=== PATIENT | female | born 1965 | race African-American/Black ===

== ENCOUNTER → 2016-07-07 | Outpatient (CLI) | payer OTHER ==
[~2016-07-07] MED LIST: BACTRIM,SEPT1 TABLET PO; LISINOPRIL; LISINOPRIL10 MG PO; VICODIN 5-3001 EACH PO
== END | disposition home or self-care (01) ==
LOC: RES 09:00
DX: R05 Cough (principal)
CPT/HCPCS: 94070; 94726; 94729

== ENCOUNTER 2017-01-26 05:14 | Day surgery (SDC) | payer OTHER ==
[~2017-01-26] VITALS: Ht 162.6 cm; Wt 104.3 kg
[~2017-01-26 05:14] MED LIST changes: +CLARITIN,ALAVAR10 MG PO; +FEOSOL325 MG PO; +QVAR 40 MCG IN7.3 GM IH; +VENTOLIN HFA18 GM IH
[2017-01-26 06:53] VITALS: BP 185/85
[2017-01-26] MEDS ORDERED: COLACE100 MG PO (09:03)
[2017-01-26] MEDS ORDERED: PERCOCET 5/31 TABLET PO (09:03)
[2017-01-26 09:56] VITALS: BP 158/85
[2017-01-26 10:40] VITALS: BP 170/86
[2017-01-26 14:26] LABS: INTERNAL CONTROL VALID? YES
== END 2017-01-26 10:59 | disposition home or self-care (01) ==
LOC: SDC
PROVIDERS: Surgery
PROC: 0JB90ZZ Excision of Buttock Subcutaneous Tissue and Fascia, Open Approach (ICD-10-PCS; principal; 2017-01-26)
DX: L05.91 Pilonidal cyst without abscess (principal); D50.9 Iron deficiency anemia, unspecified; F17.200 Nicotine dependence, unspecified, uncomplicated; I10 Essential (primary) hypertension; J45.909 Unspecified asthma, uncomplicated; E04.1 Nontoxic single thyroid nodule
CPT/HCPCS: 84703; 88304; 93005; J0330; J1885; J2250; J2405; J3010

== ENCOUNTER 2017-07-10 06:08 | Day surgery (SDC) | payer OTHER ==
[~2017-07-10] VITALS: Ht 160 cm; Wt 106.6 kg
[~2017-07-10 06:08] MED LIST changes: +COLACE100 MG PO; -LISINOPRIL10 MG PO; +MOBIC7.5 MG PO; +PERCOCET 5/31 TABLET PO; +ZESTRIL20 MG PO
[2017-07-10 07:15] VITALS: BP 203/104
[2017-07-10 08:06] VITALS: BP 192/100
[2017-07-10 13:48] VITALS: BP 162/72
[2017-07-10 14:50] VITALS: BP 144/81
== END 2017-07-10 15:20 | disposition home or self-care (01) ==
LOC: SDC
DX: D25.9 Leiomyoma of uterus, unspecified (principal); N83.8 Other noninflammatory disorders of ovary, fallopian tube and broad ligament; N87.9 Dysplasia of cervix uteri, unspecified; N92.0 Excessive and frequent menstruation with regular cycle; I10 Essential (primary) hypertension; J45.909 Unspecified asthma, uncomplicated; E66.9 Obesity, unspecified; Z68.41 Body mass index [BMI] 40.0-44.9, adult; F17.210 Nicotine dependence, cigarettes, uncomplicated
CPT/HCPCS: 88307; J0131; J0330; J0690; J1100; J1170; J1885; J2250; J2405; J2710; J3010; J7120